=== PATIENT | male | born 2005 | race Caucasian/White ===

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

== ENCOUNTER 2025-03-11 19:34 | Emergency (ER) | payer BC, SELFPAY ==
--- NOTE | ~2025-03-11 | XR_ITS ---
EXAMINATION: XR chest 2V Exam Date/Time: 03/11/2025 19:44 CDT HISTORY: cough chest pain-left side Comparison: None. RESULT: Lines, tubes, and devices: None. Lungs and pleura: No focal consolidation or pleural effusion. Small left apical pneumothorax. Cardiomediastinal silhouette: Stable. Other: No acute osseous or upper abdominal finding. IMPRESSION: Small left apical pneumothorax. Reviewed, dictated and finalized at location [facility].
[2025-03-11 19:39] VITALS: BP 134/69; PULSE 85; RESP 20; TEMP 37.3; O2SAT 100
--- NOTE | 2025-03-11 19:46 | ECG_ITS ---
Test Date: 2025-03-11 21:05:43 Measurements Intervals [place] Rate: 72 P: -8 AK: 135 QRS: 55 QRSD: 95 T: 47 QT: 374 QTc: 411 Interpretive Statements SINUS RHYTHM BASELINE ARTIFACT- I, II, AVR, AVL, AVF NORMAL ECG No previous ECG available for comparison Electronically Signed On 03-12-2025 06:35:55 CDT by Ricardo Yun D.O.
--- NOTE | 2025-03-11 19:46 | ED.CHESTPAIN ---
HPI - Chest Pain General Chief Complaint: Chest Pain Stated Complaint: chest/back pain Time Seen by Provider: 03/11/25 19:36 Source: patient and family Mode of arrival: ambulatory Limitations: no limitations History of Present Illness HPI narrative: Alirio is a 19-year-old male patient presenting to the clinic today with complaints left-sided chest and back pain. He reports symptoms started 40 minutes prior to arrival. States he does smoke marijuana but does not smoke anything else. States that the pain is worse with taking a breath. No cardiac history or pulmonary history per mother. Does not take any current medications. He denies any URI symptoms. Painful to cough and take deep breaths. Denies any GERD symptoms. Related Data Allergies Allergy/AdvReac Type Severity Reaction Status Date / Time No Known Allergies Allergy Verified 03/11/25 19:37 Review of Systems Review of Systems: Pertinent positives per HPI. Patient denies any fever, chills, rash, headache, visual changes, dizziness, shortness of breath, palpitations, nausea, vomiting, diarrhea, constipation, abdominal pain, or any urinary issues. PMFSH Social History Social History Gender identity (if verbalized by the patient): Male Comments At the time of my signature, I reviewed and agree with the nursing past medical, surgical, social, and family history. There is no relevant family history pertinent to the patient complaint. Exam Narrative: General: Well-developed, well nourished, in no apparent distress Head: Normocephalic, atraumatic Eyes: Pupils equally round and reactive to light bilaterally, EOM intact, sclera and conjunctive clear, no discharge, lids normal Ears: TMs intact and clear, ear canals clear, no drainage, grossly hearing normal. Nose: Nares patent, no discharge, no inflammation, no sinus tenderness. Mouth: Oropharynx without lesions or masses, good dentition, MMM. Neck: Supple, trachea midline, no enlargement of anterior or posterior cervical nodes, no thyroid masses or goiter palpable. Chest wall: Even rise and fall of the chest wall with respirations, no bruising or swelling noted to the chest wall, mild tenderness to palpation over the left upper chest wall Cardio: Regular rate and rhythm, s1 and s2 normal, no murmur appreciated. Resp: Clear to auscultation bilaterally anteriorly and posteriorly, no rhonchi, rales, wheezing or rubs Extremities: No deformity, no edema, no cyanosis, capillary refill less than 2 seconds, peripheral pulses palpable and strong. Integumentary: Vall[place], warm, and dry, intact without lesion, no rashes. Course Course Emergency Course: Portions of this record may have been created with voice recognition software. Level of Care: Express Care Visit Vital Signs Vital signs: Vital Signs Temperature 37.3 C 03/11/25 19:39 Pulse Rate 85 03/11/25 19:39 Respiratory Rate 20 03/11/25 19:39 Blood Pressure 134/69 03/11/25 19:39 Pulse Oximetry 100 03/11/25 19:39 Oxygen Delivery Room Air 03/11/25 19:39 Temperature 37.3 C 03/11/25 19:39 Pulse Rate 85 03/11/25 19:48 Respiratory Rate 20 03/11/25 19:48 Blood Pressure 134/69 03/11/25 19:39 Pulse Oximetry 100 03/11/25 19:48 Oxygen Delivery Room Air 03/11/25 19:48 Vital signs reviewed Transfer Transfered to: [facility] Transportation: Other (Private car) Transfer rationale: Small left apical pneumothorax Accepting physician: Krystina Transfer comments: Transfer via private car MDM - Chest Pain MDM Narrative Medical decision making narrative: At the time of visit patient is resting comfortably on the exam table. Patient appears to be nontoxic. EKG: EKG shows normal sinus rhythm with heart rate of 60 beats per minute without ST elevation, depression, or T-wave inversion. Diagnostics: Chest x-ray shows a small left apical pneumothorax. Plan: Patient has likely a left spontaneous pneumothorax. Recommend transfer to the emergency room for further evaluation. Mother and patient would like to go to [facility] emergency room for evaluation. Contacted [facility] photography assistant [facility] and she accepts patient for transfer. Differential Diagnosis Differential diagnosis: Likely fracture of rib, pneumothorax, stable angina, unstable angina pectoris, atypical chest pain, st elevation myocardial infarction, costochondritis, chest pain and other (GERD, pleurisy) Imaging Data Radiologist's impression: ITS Impressions Chest X-Ray 03/11/25 20:19 IMPRESSION: Small left apical pneumothorax. ECG Data EKG #1: Attestation: I personally reviewed and interpreted this ECG as follows: ECG completion date: 03/11/25 ECG completion time: 20:01 Prior ECG tracings: not available for review Interpretation: EKG shows normal sinus rhythm with heart rate of 60 beats per minute without ST elevation, depression, or T-wave inversion. MD interval is 130 milliseconds, QRS durations 92 milliseconds, QT-QTC is 381-382 milliseconds, P-R-T axis is -[phone] Discharge Plan Discharge Clinical Impression: Pneumothorax Patient Disposition: Acute Care Hospital Condition: Stable Patient Language: Uruguayan Follow-up/Referrals: PHYSICIAN,EMAIL MARKETER [Primary Care Provider] - Quality NIHSS Nursing Documentation ED NIHSS nursing documentation: reviewed/agree
[2025-03-11 19:48] VITALS: PULSE 85; RESP 20; O2SAT 100
== END 2025-03-11 20:35 | disposition short-term general hospital (02) ==
PROVIDERS: Emergency Provider Nurse Practitioner Family; Referring Provider Family Medicine
DX: J93.9 Pneumothorax, unspecified (principal); F12.90 Cannabis use, unspecified, uncomplicated
CPT/HCPCS: 71046; 93005; 99213; G0463

== ENCOUNTER 2025-03-11 20:48 | Observation (INO) | payer BC, SELFPAY ==
[2025-03-11] VITALS (13 sets, daily range): BP systolic 121–136; BP diastolic 66–77; PULSE 50–81; RESP 9–18; TEMP 36.6–36.7; O2SAT 98–100; BMI 19.5
--- NOTE | ~2025-03-11 | XR_ITS ---
Clinical Indication: Left pneumothorax PA and lateral views of the chest: Comparison: 03/11/2025 Findings: Small left apical pneumothorax is similar to prior exam.. Cardiomediastinal silhouette is within normal limits. Bones and soft tissues are unremarkable. Impression: Small left apical pneumothorax, similar to prior exam. Reviewed, dictated and finalized at [facility]. Impression: Small left apical pneumothorax, similar to prior exam.
--- NOTE | ~2025-03-11 | XR_ITS ---
EXAMINATION: XR chest 2V Exam Date/Time: 03/11/2025 21:21 CDT HISTORY: sob/ SMALL LEFT APICAL PNEUMOTHORAX Comparison: 03/11/2025. RESULT: Lines, tubes, and devices: None. Lungs and pleura: Stable small left apical pneumothorax, given interval differences in technique and positioning. No focal consolidation, or pleural effusion Cardiomediastinal silhouette: Stable. Other: No acute osseous or upper abdominal finding. IMPRESSION: . Stable small left apical pneumothorax. Reviewed, dictated and finalized at location [facility].
--- NOTE | ~2025-03-11 | CT_ITS ---
CT Scan of the Chest without Contrast: Clinical Indication: Pneumothorax Technique: Contiguous sections were acquired throughout the chest without intravenous contrast. Dose reduction technique was used on this scan by utilizing automated exposure control and iterative recon struction technique. The dose-length product (DLP) was 145.06 mGy-cm. Findings: There is no evidence of any significant mediastinal, hilar or axillary lymphadenopathy. The mediastin al soft tissues appear normal. There is no evidence of pleural or pericardial effusion. The lungs are clear. No pulmonary nodules or infiltrates are noted. Small left hemopneumothorax noted . Images through the upper abdomen reveal no abnormalities. Impression: Small left apical pneumothorax. Reviewed, dictated and finalized at location . Impression: Small left apical pneumothorax.
--- OUTSIDE RECORDS SUMMARY | 2025-03-11 20:50 | XMS_ITS | Clinical Summary ---
Author Organization [facility] [employer] Address [address] [place] [address] Care Team Providers Care Kitchen Steward Name Role Phone Monique Newton MD Unavailable [phone] Monique Newton MD Primary Care Provider [phone] Source Comments [facility] [employer],non-owned Affiliates and Associated Physician Practices is amultiple site organization consisting of ambulatory clinics and hospital sitesin [place], [place], [place] and [place]. This disclosure is being madepursuant to the Care Everywhere program and may not contain all information available regarding this patient. Last updated 18.[facility] [employer] Allergies No known active allergies Medications * Be aware that medications may not be up to date on this document. Alwaysverify current medications with the patient. No known medications Active Problems Problem Noted Date Diagnosed Date BMI (body mass index), pedia tric, 85% to less than 95% for age 1110/27/2018 ADHD (attention deficit hyperactivity disorder) 11/10/2011 Overview (07/22/2016): No longer needing medication. Resolved Problems Problem Noted Date Diagnosed Date Resolved Date Fracture of finger, multiple sites, closed 01/18/2018 10/27/2018 Immunizations Immunization Administration Dates Next Due INFLUENZA VACCINE, TRIV. (AF LURIA, FLUZONE TRIVALENT; 6MO+) (IIV3) 10/09/2011,09/29/2010 DTAP/IPV 08/01/2010 DTaP VACCINE IM (6wk-6yrs) 11/30/2006,,2005,08/04 HEP A PEDS 2 DOSE 02/01/2009,09/29/2007 HEP B VACCINE, PED/ADOL 2005,10/08,2005,06/02 HIB BOOSTER 11/30/2006, 6,2005,08/04 Human Papilloma Virus Jesus valent Vaccine 07/21/2016,10/02/2015,07/18/2015 INFLUENZA VACCINE 09/13/2009 INFLUENZA VACCINE, QUADR. (F LUZONE; FLULAVAL; FLUARIX; AFLURIA QUADRIVALENT; 6MO+), 0.5 ML (IIV4) 10/10/2020,10/05/2019,08/31/2018,09/03 AMBROSIO VACCINE QUAD LAIV4 PF NASAL 10/02/2015 MENINGOCOCCAL ACWY (MCV4P) VAC IM 07/21/2016 MMR 09/13/2009,09/29/2007 PNEUMOCOCCAL CONJ, PEDS 11/30/2006,12/03,2005,08/04 POLIO IPV 2005,2005,2005 TDAP (7yrs+) 07/18/2015 VARICELLA 09/13/2009,09/29/2007 Social History Tobacco Use Types Packs/Day Years Used Date Smoking Tobacco: Passive Smo ke Exposure - Never Smoker Smokeless Tobacco: Never PHQ-2 Answer Date Recorded PHQ2 TOTAL SCORE 2 12/26/2021 Sex and Gender Information Value Date Recorded Sex Assigned at Not on file Legal Sex Male 5:44 AM CONFERENCE RESERVATIONIST Gender Identity Not on file Sexual Orientation Not on file Last Filed Vital Signs Vital Sign Reading Time Taken Comments Blood Pressure 126/84 10/10/2020 1:47 PM CONFERENCE RESERVATIONIST Pulse 89 10/10/2020 1:47 PM CONFERENCE RESERVATIONIST Temperature 36.9 C (98.5 F) 10/29/2021 9:40 AM CONFERENCE RESERVATIONIST Respiratory Rate - - Oxygen Saturation - - Inhaled Oxygen Concentration - - Weight 68.5 kg (151 lb) 12/26/2021 3:30 PM CONFERENCE RESERVATIONIST Height 180.3 cm (5' 11 ) 10/10/2020 1:47 PM CONFERENCE RESERVATIONIST Body Mass Index - - Plan of Treatment Health Maintenance Due Date Last Done Comments HIV SCREENING 2020 MENINGOCOCCAL (Group B) VACCINE SHARED DECISION-MAKING (1 of 2 - Standard) 2021 HEPATITIS C SCREENING 05/29/2023 COVID-19 VACCINE (1 - season) 2024 DEPRESSION SCREENING 11/29/2024 12/26/2021 DTAP/TDAP/TD VACCINES (7 - Td or Tdap) 07/18/2025 07/18/2015, 08/01/2010, 11/30/2006, Additional history exists INFLUENZA VACCINE (Season Ended) 2025 10/10/2020, 10/05/2019, 08/31/2018, Additional history exists ZOSTER VACCINE (1 of 2) 2055 HEPATITIS B VACCINE Completed 2005, 2005, 2005, Additional history exists HIB VACCINE Completed 11/30/2006, 03/2006, 2005, Additional history exists PNEUMOCOCCAL VACCINE Completed 11/30/2006, 2005, 2005, Additional history exists HPV VACCINE Completed 07/21/2016, 02/2015, 07/18/2015 MENINGOCOCCAL GROUPS A/C/Y/W VACCINE Aged Out 07/21/2016 No longer eligible based on patient's age to complete this topic Goals Goal Patient Goal Type Associated Problems Recent Progress Patient-Stated? Author Use safety retraint in car Lifestyle On track( 021 9:40 AM CONFERENCE RESERVATIONIST) Jaelyn Mccoy RN Insurance MEDICAID [employer] [facility] [place] * Guarantor: CODIE CAMPOS Account Type Relation to Patient Date of Phone Billing Address Personal/Family 2005 [address] [id number] Care Teams Kitchen Steward Relationship Specialty Start Date End Date Monique Newton MD PCP - Pediatrics 12/05/09 Monique Newton MD PCP - General Pediatrics 11/09/11
--- NOTE | 2025-03-11 21:01 | ECG_ITS ---
Test Date: 2025-03-11 20:01:30 Measurements Intervals [place] Rate: 60 P: -44 CO: 130 QRS: 56 QRSD: 92 T: 47 QT: 381 QTc: 382 Interpretive Statements SINUS RHYTHM BASELINE ARTIFACT- I, II, III, AVR, AVL, AVF, V1-V6 NORMAL ECG No previous ECG available for comparison Electronically Signed On 03-12-2025 08:02:31 CDT by Ricardo Yun D.O.
[2025-03-11 21:18] LABS: Basophils Percent Auto 0.4 % (0.2-1.2); Eosinophils Absolute Auto 0.1 K/mm3 (0-0.3); Eosinophils Percent Auto 0.6 % (0-4.4); Hematocrit 41.9 % (42.0-52.0); Hemoglobin 14.7 g/dL (14.0-18.0); Immature Granulocyte Absolute 0.02 K/mm3 (0.00-0.031); Immature Granulocyte Percent A 0.3 % (0-0.5); Lymphocytes Absolute Auto 1.47 K/mm3 (0.9-3.2); Lymphocytes Percent Auto 18.6 % (18.3-44.2); Mean Corpuscular HGB Conc 35.1 g/dl (32-36); Mean Corpuscular Hemoglobin 31.3 pg (26-34); Mean Corpuscular Volume 89.1 fl (80-100); Monocytes Absolute Auto 0.6 K/mm3 (0.1-0.6); Monocytes Percent Auto 7.7 % (2.6-8.5); Neutrophils Absolute Auto 5.7 K/mm3 (1.3-6.7); Neutrophils Percent Auto 72.4 % (45.5-73.1); Platelet Count Result 238 k/mm3 (150-375); Red Cell Distribution Width 11.7 % (11.5-14.5); White Blood Count 7.9 K/mm3 (4.5-10.0)
[2025-03-11 21:30] LABS: Alanine Aminotransferase 21 U/L (6-50); Albumin Level 5.3 g/dL (3.7-5.6); Alkaline Phosphatase 66 U/L (58-237); Anion Gap 11 mmol/L (4-12); Aspartate Amino Transferase 21 U/L (17-59); Bilirubin,Total 0.7 mg/dL (0.2-1.3); Blood Urea Nitrogen 17 mg/dL (8-21); Calcium 9.9 mg/dL (8.9-10.7); Carbon Dioxide 26 mmol/L (22-30); Chloride 102 mmol/L (98-107); Estimated CRCL calculation 101 ml/min; Estimated Glomerular Filt Rate > 60; Glucose 88 mg/dL (65-110); Potassium 3.8 mmol/L (3.4-5.0); Sodium 139 mmol/L (134-143)
--- OUTSIDE RECORDS SUMMARY | 2025-03-11 21:48 | XMS_ITS | Clinical Summary ---
Author Organization [facility] [employer] Address [address] [place] [address] Care Team Providers Care Extract Mixer Name Role Phone Monique Newton MD Unavailable [phone] Monique Newton MD Primary Care Provider [phone] [facility] [employer],non-owned Affiliates and Associated Physician Practices is amultiple site organization consisting of ambulatory clinics and hospital sitesin [place], [place], [place] and [place]. This disclosure is being madepursuant to the Care Everywhere program and may not contain all information available regarding this patient. Last updated 18.[facility] [employer] Allergies No known active allergies Medications * [...] on file Legal Sex Male 5:44 AM LAB PACK CHEMIST Gender Identity Not on file Sexual Orientation Not on file Last Filed Vital Signs Vital Sign Reading Time Taken Comments Blood Pressure 126/84 10/10/2020 1:47 PM LAB PACK CHEMIST Pulse 89 10/10/2020 1:47 PM LAB PACK CHEMIST Temperature 36.9 C (98.5 F) 10/29/2021 9:40 AM LAB PACK CHEMIST Respiratory Rate - - Oxygen Saturation - - Inhaled Oxygen Concentration - - Weight 68.5 kg (151 lb) 12/26/2021 3:30 PM LAB PACK CHEMIST Height 180.3 cm (5' 11 ) 10/10/2020 1:47 PM LAB PACK CHEMIST Body Mass Index - - Plan of [...] car Lifestyle On track( 021 9:40 AM LAB PACK CHEMIST) Jaelyn Mccoy RN Insurance MEDICAID [employer]ET[employer] [facility] [place] * Guarantor: CODIE CAMPOS Account Type Relation to Patient Date of Phone Billing Address Personal/Family 2005 [address] [id number] Care Teams Extract Mixer Relationship Specialty Start Date End Date Monique Newton MD PCP - Pediatrics 12/05/09 Monique Newton MD PCP - General Pediatrics 11/09/11
--- NOTE | 2025-03-11 21:55 | PC.NURSE ---
Patient taken to CT via stretcher at this time.
--- NOTE | 2025-03-11 22:52 | ED_ITS ---
HPI - General Adult General Chief complaint: Shortness of Breath/Dyspnea Stated complaint: Sent from with Pneumothorax Time Seen by Provider: 03/11/25 21:04 History of Present Illness HPI narrative: Patient 19-year-old gentleman presents emergency department chief complaint of spontaneous pneumothorax. Patient reports he was smoking some marijuana and had pleuritic pain on the left side of his chest. The patient was seen in urgent care to found have a small apical pneumothorax the patient was sent to the emergency department for evaluation the patient states he currently feels little bit better at this time reports no prior history of pneumothorax Related Data Allergies Allergy/AdvReac Type Severity Reaction Status Date / Time No Known Allergies Allergy Verified 03/11/25 21:07 Review of Systems 2 Review of Systems: A 10 system review of systems was completed on the patient and is negative except for what is stated in the HPI. Nursing and ancillary documentation was reviewed. PMFSH Social History Social History Gender identity (if verbalized by the patient): Male Exam 2 Narrative: GENERAL: Well-appearing, well-nourished, and in no acute distress. HEAD: Normocephalic, atraumatic. EYES: PERRLA and EOMI. ENT: Nares clear, no rhinorrhea or epistaxis. Mucous membranes moist. NECK: Supple. CHEST: Clear to auscultation. No respiratory distress. HEART: Regular rate and rhythm. No murmur heard. Normal peripheral pulses. ABDOMEN: Soft, nontender, nondistended, normal active bowel sounds. EXTREMITIES: Normal range of motion. No edema. SKIN: Warm, dry, no rash. NEURO: No focal deficits. Alert and oriented x3. PSYCH: Normal mood and affect. Course Vital Signs Vital signs: Vital Signs Temperature 36.6 C 03/11/25 20:56 Pulse Rate 81 03/11/25 20:56 Respiratory Rate 14 03/11/25 20:56 Blood Pressure 136/66 03/11/25 20:56 Pulse Oximetry 100 03/11/25 20:56 Oxygen Delivery Room Air 03/11/25 20:56 Temperature 36.6 C 03/11/25 20:56 Pulse Rate 81 03/11/25 20:56 Respiratory Rate 14 03/11/25 20:56 Blood Pressure 136/66 03/11/25 20:56 Pulse Oximetry 100 03/11/25 21:13 Oxygen Delivery Nasal Cannula 03/11/25 21:13 Oxygen Flow Rate 2 03/11/25 21:13 Medical Decision Making MDM Narrative Medical decision making narrative: Patient was found have a pneumothorax Urgent Care on arrival to our emergency department patient was started on nasal cannula oxygen to cyst with resorption of the pneumothorax. CT of the chest was obtained after a repeat chest x-ray showed no interval increase in size of the pneumothorax. CT chest showed less than a 10% pneumothorax this time the patient does not necessitate placement of a chest tube. The case was discussed with Dr. Kraft was on-call for General surgery who will admit the patient primarily for observation Vital Signs Vital Signs: Vital Signs Temperature 36.6 C 03/11/25 20:56 Pulse Rate 81 03/11/25 20:56 Respiratory Rate 14 03/11/25 20:56 Blood Pressure 136/66 03/11/25 20:56 Pulse Oximetry 100 03/11/25 20:56 Oxygen Delivery Room Air 03/11/25 20:56 Temperature 36.6 C 03/11/25 20:56 Pulse Rate 81 03/11/25 20:56 Respiratory Rate 14 03/11/25 20:56 Blood Pressure 136/66 03/11/25 20:56 Pulse Oximetry 100 03/11/25 21:13 Oxygen Delivery Nasal Cannula 03/11/25 21:13 Oxygen Flow Rate 2 03/11/25 21:13 Lab Data 03/11/25 21:12 03/11/25 21:12 Labs: Lab Results 03/11/25 Range/Units 21:12 WBC 7.9 (4.5-10.0) K/mm3 RBC 4.70 (4.6-6.20) M/mm3 Hgb 14.7 (14.0-18.0) g/dL Hct 41.9 L (42.0-52.0) % MCV 89.1 (80-100) fl MCH 31.3 (26-34) pg MCHC 35.1 (32-36) g/dl RDW 11.7 (11.5-14.5) % Plt Count 238 (150-375) k/mm3 MPV 10.0 (7.4-10.4) fl Immature Gran % (Auto) 0.3 (0-0.5) % Neut % (Auto) 72.4 (45.5-73.1) % Lymph % (Auto) 18.6 (18.3-44.2) % [place] % (Auto) 7.7 (2.6-8.5) % Eos % (Auto) 0.6 (0-4.4) % Baso % (Auto) 0.4 (0.2-1.2) % Lymph # (Auto) 1.47 (0.9-3.2) K/mm3 [place] # (Auto) 0.6 (0.1-0.6) K/mm3 Eos # (Auto) 0.1 (0-0.3) K/mm3 Baso # (Auto) 0.0 (0.0-0.1) K/mm3 Abs Immat Gran (auto) 0.02 (0.00-0.031) K/mm3 Absolute Neuts (auto) 5.7 (1.3-6.7) K/mm3 Absolute Nucleated RBC 0.000 (0.0-0.012) K/mm3 Nucleated RBC % 0.0 (0.0-0.2) % Sodium 139 (134-143) mmol/L Potassium 3.8 (3.4-5.0) mmol/L Chloride 102 (98-107) mmol/L Carbon Dioxide 26 (22-30) mmol/L Anion Gap 11 (4-12) mmol/L BUN 17 (8-21) mg/dL Creatinine 1.00 (0.7-1.3) mg/dL Estim Creat Clear Calc 101 ml/min Estimated GFR > 60 (59 - ) Glucose 88 (65-110) mg/dL Calcium 9.9 (8.9-10.7) mg/dL Total Bilirubin 0.7 (0.2-1.3) mg/dL AST 21 (17-59) U/L ALT 21 (6-50) U/L Alkaline Phosphatase 66 (58-237) U/L Total Protein 8.0 (6.3-8.6) g/dL Albumin 5.3 (3.7-5.6) g/dL Discharge Plan Discharge Clinical Impression: Spontaneous pneumothorax Patient Disposition: Still a Patient Condition: Stable Patient Language: Green[place]ic Follow-up/Referrals: PHYSICIAN,EXECUTIVE WELLNESS PROGRAMS DIRECTOR [Primary Care Provider] - Time of Disposition: 22:54
[2025-03-12 00:44] VITALS: O2SAT 100
[2025-03-12] MEDS: HYDROcodone/acetaminophen (*CRX) 5-325 MG TABLET 1 TAB PO ×2 (02:10→08:50)
[2025-03-12 05:53] VITALS: BP 130/80; PULSE 70; RESP 16; TEMP 36.3; O2SAT 100
[2025-03-12 07:26] VITALS: PULSE 57; O2SAT 99
[2025-03-12 08:00] VITALS: PULSE 57; O2SAT 99
--- NOTE | 2025-03-12 11:41 | P.HP_ITS ---
H&P: HPI History of Present Illness Date/Time: 03/12/25 11:41 [facility] Social History Social History Smoking status: Current every day smoker Alcohol intake: current Drinks per week: 2 Substance use: current Substance use type: marijuana Do You Feel Safe in your Home?: Yes Lack of Transportation: No Lack of Food: Never True Current Housing: I Have Housing Concerned About Future Housing: No Difficulty Paying Gas/Electric Bills: No Difficulty Paying for Meds: No Currently Unemployed: No Education: High School Diploma/GED Difficulty w/ Childcare or Family Care: No Gender identity (if verbalized by the patient): Male Spiritual care concerns: No Meds Home Medications and Allergies Home Medications ?Medication ?Instructions ?Recorded ?Confirmed ?Type No Home Medications 03/11/25 03/11/25 History Allergies Allergy/AdvReac Type Severity Reaction Status Date / Time codeine Allergy Sweating Verified 03/12/25 10:57 Vital Signs Vital Signs - 24 hr 03/11/25 20:56 03/11/25 21:13 03/11/25 21:41 Temperature 97.9 F Pulse Rate 81 68 Respiratory Rate 14 14 Blood Pressure 136/66 Pulse Oximetry 100 100 100 Oxygen Delivery Room Air Nasal Cannula Oxygen Flow Rate 2 03/11/25 22:16 03/11/25 22:23 03/11/25 22:30 Temperature Pulse Rate 53 L 52 L 52 L Respiratory Rate 10 L 10 L 9 L Blood Pressure 124/73 Pulse Oximetry 99 99 98 Oxygen Delivery Oxygen Flow Rate 03/11/25 22:31 03/11/25 22:45 03/11/25 23:00 Temperature Pulse Rate 55 L 65 51 L Respiratory Rate 14 13 13 Blood Pressure 121/67 Pulse Oximetry 99 99 100 Oxygen Delivery Oxygen Flow Rate 03/11/25 23:01 03/11/25 23:15 03/11/25 23:21 Temperature Pulse Rate 56 L 50 L 57 L Respiratory Rate 14 17 13 Blood Pressure 124/75 124/75 Pulse Oximetry 100 100 100 Oxygen Delivery Oxygen Flow Rate 03/11/25 23:41 03/12/25 00:44 03/12/25 05:53 Temperature 98.0 F 97.4 F L Pulse Rate 57 L 70 Respiratory Rate 18 16 Blood Pressure 126/77 130/80 Pulse Oximetry 100 100 100 Oxygen Delivery Nasal Cannula Oxygen Flow Rate 2 03/12/25 07:26 03/12/25 08:00 Temperature Pulse Rate 57 L 57 L Respiratory Rate Blood Pressure Pulse Oximetry 99 99 Oxygen Delivery Room Air Room Air Oxygen Flow Rate H&P: Results Labs Labs: Short CBC 03/11/25 Range/Units 21:12 WBC 7.9 (4.5-10.0) K/mm3 Hgb 14.7 (14.0-18.0) g/dL Hct 41.9 L (42.0-52.0) % Plt Count 238 (150-375) k/mm3 BMP 03/11/25 21:12 Sodium 139 Potassium 3.8 Chloride 102 Carbon Dioxide 26 BUN 17 Creatinine 1.00 Glucose 88 Calcium 9.9 Liver Function 03/11/25 Range/Units 21:12 Total Bilirubin 0.7 (0.2-1.3) mg/dL AST 21 (17-59) U/L ALT 21 (6-50) U/L Alkaline Phosphatase 66 (58-237) U/L Albumin 5.3 (3.7-5.6) g/dL Assessment and Plan Assessment and plan (1) Spontaneous pneumothorax: Code(s): J93.83 - Other pneumothorax Status: Acute (2) Marijuana use: Code(s): F12.90 - Cannabis use, unspecified, uncomplicated Status: Acute
[2025-03-12] MEDS: traMADol HCL (*CRX) 25 MG TABLET PO (13:34)
[2025-03-12 14:00] VITALS: BP 118/65; PULSE 85; RESP 16; TEMP 37.1; O2SAT 100
--- NOTE | 2025-03-12 14:19 | PM.SD2 ---
Same Day Admit/Disch: HPI History of Present Illness Chief complaint: Spontaneous pneumothorax Narrative: Alirio Campos is a 19 year old male who presented to the ED yesterday due to an outpatient chest x-ray showing small pneumothorax. The patient smokes marijuana and developed a sudden onset of chest pressure radiating into his mid upper back while smoking marijuana on his back porch. He denies any coughing, trauma, or recent falls. No previous pneumothorax. His pain was persistent and he went to the urgent care in [place] for evaluation. They did a chest x-ray which showed a small left apical pneumothorax. He was then referred to the ED. vital signs were stable and he was not in any acute distress. Repeat chest x-ray still showed a stable small left apical pneumothorax. CT of the chest was then ordered and showed a small left apical pneumothorax. He was admitted and monitored. He was treated with supplemental oxygen. Repeat chest x-ray this morning shows a stable unchanged small left pneumothorax. He denies any shortness of breath or difficulty with breathing through the night. He has been titrated off oxygen this morning with stable oxygen saturations. He is still having some mild chest pain, but reportedly improved and is well controlled with hydrocodone. He reports a side effect of sweating with hydrocodone and is requesting different medication for the pain. [facility] Past Medical History Medical History Marijuana use Surgical History Surgical History No pertinent past surgical history Social History Social History Smoking status: Current every day smoker Alcohol intake: current Drinks per week: 2 Substance use: current Substance use type: marijuana Do You Feel Safe in your Home?: Yes Lack of Transportation: No Lack of Food: Never True Current Housing: I Have Housing Concerned About Future Housing: No Difficulty Paying Gas/Electric Bills: No Difficulty Paying for Meds: No Currently Unemployed: No Education: High School Diploma/GED Difficulty w/ Childcare or Family Care: No Gender identity (if verbalized by the patient): Male Spiritual care concerns: No Same Day Admit/Disch: Med Pre-admit Medications Home Medications ?Medication ?Instructions ?Recorded ?Confirmed ?Type No Home Medications 03/11/25 03/11/25 History tramadol 25 mg tablet 25 mg PO Q6H PRN Pain Rated 4-6 #7 03/12/25 Rx tabs Review of Systems Review of Systems All systems reviewed & are unremarkable except as noted in HPI and below Exam Const: General: comfortable and no acute distress Nutritional Appearance: thin Orientation/consciousness: patient oriented x3 HENMT: Head: normocephalic and atraumatic Ears: hearing grossly normal bilaterally Mouth: Yes moist mucous membranes Eyes: General: appearance normal, both eyes and all related structures Pupils: Equal, round and reactive pupils present Neck: Neck: normal visual inspection and full ROM Chest: Chest palpation & inspection: normal inspection of the chest, no crepitus and no tenderness Resp: Effort & Inspection: no respiratory distress Auscultation: clear to auscultation bilaterally Cardio: Rate: regular rate Rhythm: regular rhythm Peripheral pulses: Peripheral pulses 2+ throughout GI: Inspection: non-distended GI Palp: Yes Soft to palpation, No Tenderness to palpation present (GI), No Guarding due to palpation present (GI) and No Rebound tenderness present Auscultation: normal bowel sounds Skin: General skin exam: normal color Neuro: General: moves all extremities and no focal motor deficits Speech: normal speech Motor exam (neuro): 5/5 motor strength present throughout Extrem: General: normal to inspection and no edema Psych: Mental Status: mental status grossly normal Attitude: cooperative Insight: Good insight present (Psych) Judgement: Good judgement present (Psych) DS: Data Data Completed and Pending Labs on day of discharge: Labs from last 24 hours 03/11/25 21:12 WBC 7.9 RBC 4.70 Hgb 14.7 Hct 41.9 L MCV 89.1 MCH 31.3 MCHC 35.1 RDW 11.7 Plt Count 238 MPV 10.0 Immature Gran % (Auto) 0.3 Neut % (Auto) 72.4 Lymph % (Auto) 18.6 [place] % (Auto) 7.7 Eos % (Auto) 0.6 Baso % (Auto) 0.4 Lymph # (Auto) 1.47 [place] # (Auto) 0.6 Eos # (Auto) 0.1 Baso # (Auto) 0.0 Abs Immat Gran (auto) 0.02 Absolute Neuts (auto) 5.7 Absolute Nucleated RBC 0.000 Nucleated RBC % 0.0 Sodium 139 Potassium 3.8 Chloride 102 Carbon Dioxide 26 Anion Gap 11 BUN 17 Creatinine 1.00 Estim Creat Clear Calc 101 Estimated GFR > 60 Glucose 88 Calcium 9.9 Total Bilirubin 0.7 AST 21 ALT 21 Alkaline Phosphatase 66 Total Protein 8.0 Albumin 5.3 Imaging Radiologist's impression: ITS Impressions Chest X-Ray 03/11/25 21:28 IMPRESSION: . Stable small left apical pneumothorax. Chest CT 03/12/25 05:42 Impression: Small left apical pneumothorax. Chest X-Ray 03/12/25 08:24 Impression: Small left apical pneumothorax, similar to prior exam. DS: Summary Hospital Course Reason for hospitalization: This is a 19-year-old male who had a sudden onset of chest pressure and presented to an outpatient urgent care with a chest x-ray that showed a small left apical pneumothorax. He was directed to the ED for further evaluation. Hospital Course: The patient was admitted and repeat imaging showed a stable left small apical pneumothorax. CT scan of the chest without any additional findings. He was treated with supplemental oxygen and monitoring. He had a repeat chest x-ray this morning that showed a stable small left pneumothorax without any changes. He was weaned off of O2. His case was discussed with Dr. Kraft and he was stable for discharge this afternoon. Discussed discharge instructions in detail and recommendations a return to work. All questions were answered prior to discharge. Time spent discussing smoking cessation with patient: more than 10 minutes Status at Discharge Functional status at discharge: independent ambulation Overall status at discharge: patient is back to baseline Time Spent with Patient Time attestation: Total time spent providing and/or coordinating discharge services: Time spent: Less than 30 minutes DS: Admitting Diagnosis Discharge Date 03/12/2025 Admitting Diagnosis Spontaneous left pneumothorax Marijuana use DS: Discharge Diagnosis Discharge Diagnosis (1) Spontaneous pneumothorax: Code(s): J93.83 - Other pneumothorax Status: Acute Assessment and Plan: This is the patient's first episode of a spontaneous pneumothorax. He smokes marijuana daily. The pneumothorax is small and he has remained stable with monitoring. Chest x-ray this morning showed the pneumothorax was unchanged in stable. Will discharge this afternoon with recommendations to return if he develops any recurrent symptoms. (2) Marijuana use: Code(s): F12.90 - Cannabis use, unspecified, uncomplicated Status: Chronic Assessment and Plan: I had a thorough discussion with the patient in regards to smoking cessation on discharge. His mother was also present for our conversation. We discussed the risks of recurrence if he continues to smoke, and how this is treated depending on the severity of the pneumothorax. We strongly recommend to quit smoking any substances after discharge and the patient verbalized wishes to comply. Plan I have discussed the patient's case and plan of care with Dr. Kraft. Discharge Plan Discharge Attending physician on discharge: Tong Kraft Consulting providers: Katalina Saenz Discharging Clinician: Yanira Sims Anticipated Discharge Date/Time: 03/12/25 14:06 Patient Disposition: Home Activity: as tolerated and other - see discharge instructions Diet: regular Discharge Instructions: Per Care Coordination: Please call [facility] [phone] to obtain a primary care provider. STOP SMOKING. DO NOT smoke any substances including tobacco, marijuana, etc. This can lead to another pneumothorax/recurrence. No heavy lifting or strenuous activity for at least 1 week. You may gradually increase activity after this if feeling well and at baseline. No contact sports for at least 2-3 weeks. No flying, deep sea diving, or playing wind instrument for at least 2 weeks If you develop chest pain or shortness of breath/difficulty breathing, then go directly to the ED. If you have additional questions, you may call the surgeon's office. [phone] Pain medication was sent to the pharmacy. This is an opioid and should be used only for moderate to severe pain. You may also take Tylenol and/or Ibuprofen as needed over the counter for pain. Patient Instructions: Antibiotic Form, Spontaneous Pneumothorax (GEN) Patient Language: [place] Stand Alone Forms: General Discharge Information, Work/School Release IP Follow-up/Referrals: Katalina Saenz DO [Physician] - Call for Appointment Discharge Medications: New tramadol 25 mg tablet 25 mg PO Q6H PRN (Reason: Pain Rated 4-6) Qty: 7 0RF No Action No Home Medications Date of admission: 03/11/25 22:49 Primary Care Provider: PHYSICIAN,HAZARDOUS MATERIALS DRIVER Admitting Provider: Tong Kraft Attending physician on admission: Tong Kraft Condition: Stable Quality If No VTE Prophylaxis Answer both mechanical and pharmacologic: Reason no mechanical VTE proph: low risk/not indicated Reason no pharmacologic proph: low risk/not indicated
== END 2025-03-12 14:35 | disposition home or self-care (01) ==
LOC: ANHED 22:54 → ANH3MEDSUR 23:23
PROVIDERS: Admitting Provider Surgery; Emergency Provider Emergency Medicine; Visit Provider Surgery
DX: J93.83 Other pneumothorax (principal); F12.90 Cannabis use, unspecified, uncomplicated
CPT/HCPCS: 36415; 71046; 71250; 80053; 85025; 93005; 99285; A9270; G0378